=== PATIENT | female | born 1955 ===

== ENCOUNTER 2017-04-19 17:41 | Emergency (ER) | payer OTHER ==
[2017-04-19 17:41] VITALS: BMI 27.4
--- NOTE | 2017-04-19 18:49 | ED PDOC ---
HPI: Psych/Substance Abuse Time Seen by Provider: 04/19/17 17:57 Chief Complaint (Nursing): Psychiatric Evaluation Chief Complaint (Provider): Crisis eval History Per: Patient Additional Complaint(s): Pt brought in by [facility] – [place], pt had an argument with son, felt anxious and stated she wanted to . Pt expressed suicidal ideations with a plan to overdose. Pt states she has a long history of depression. Denies homicidal ideations. Past Medical History Reviewed: Nursing Documentation, Vital Signs Vital Signs: Last Vital Signs Temp 99.6 F 04/19/17 17:55 Pulse 70 04/19/17 17:55 Resp 18 04/19/17 17:55 BP 151/79 H 04/19/17 17:55 Pulse Ox 99 04/19/17 17:55 - Medical History PMH: Arthritis, Depression, HTN Denies: Chronic Kidney Disease - Family History Family History: States: No Known Family Hx - Living Arrangements Living Arrangements: With Family - Social History Current smoker - smoking cessation education provided: No Alcohol: None Drugs: Denies - Home Medications Home Medications: Ambulatory Orders Medication Instructions Recorded Clonazepam 1 mg PO HS 03/19/15 Escitalopram [Lexapro] 10 mg PO DAILY 03/19/15 Losartan/Hydrochlorothiazide 1 tab PO DAILY 03/19/15 [Losartan Potassium-Hydrochlorothiazide 12.5 M] - Allergies Allergies/Adverse Reactions: Allergies Allergy/AdvReac Type Severity Reaction Status Date / Time No Known Allergies Allergy Verified 03/19/15 07:47 Review of Systems ROS Statement: Except As Marked, All Systems Reviewed And Found Negative Psych: Positive for: Depression Physical Exam - Reviewed Nursing Documentation Reviewed: Yes Vital Signs Reviewed: Yes - Physical Exam Appears: Positive for: Well, Non-toxic, No Acute Distress Head Exam: Positive for: ATRAUMATIC, NORMAL INSPECTION, NORMOCEPHALIC Skin: Positive for: Normal Color, Warm, DRY Eye Exam: Positive for: EOMI, Normal appearance, PERRL ENT: Positive for: Normal ENT Inspection Neck: Positive for: Normal, Painless ROM Cardiovascular/Chest: Positive for: Regular Rate, Rhythm Respiratory: Positive for: CNT, Normal Breath Sounds Gastrointestinal/Abdominal: Positive for: Normal Exam, Bowel Sounds, Soft Back: Positive for: Normal Inspection Extremity: Positive for: Normal ROM Neurologic/Psych: Positive for: Alert, Oriented - Laboratory Results Result Diagrams: 04/19/17 19:00 - ECG O2 Sat by Pulse Oximetry: 99 Medical Decision Making Medical Decision Making: Crisis eval ordered Case endorsed to Mary Franco at 20:00 pending crisis eval and med screening exam Disposition - Clinical Impression Clinical Impression: Depression - Patient ED Disposition Is Patient to be Admitted: Transfer of Care ([facility]) - Disposition Disposition: Transfer of Care ([facility]) Disposition Time: 19:24 Condition: STABLE Forms: [facility] ([place]) - POA Present On Arrival: None
[2017-04-19 19:14] LABS: BASO % 0.9 % (0.0-2.0); HEMATOCRIT 40.9 % (34.0-47.0); LYMPH % 18.7 % (20.0-40.0); MEAN CELL VOLUME 87.9 fl (81.0-99.0); MEAN CORPUSCULAR HEMOGLOBIN 29.1 pg (27.0-31.0); MEAN CORPUSCULAR HGB CONC 33.1 g/dL (33.0-37.0); MONO # 0.5 K/uL (0.0-0.8); MONO % 8.9 % (0.0-10.0); NEUT # 3.6 K/uL (1.8-7.0); NEUT % 70.5 % (50.0-75.0); NRBC % 0.2 % (0.0-0.0); RED CELL DISTRIBUTION WIDTH 13.8 % (11.5-14.5); WHITE BLOOD COUNT 5.2 K/uL (4.8-10.8)
[2017-04-19 19:22] LABS: ALB/GLOB RATIO 1.5 (1.0-2.1); ALCOHOL SERUM < 10 mg/dl (0-10); ALKALINE PHOSPHATASE 89 U/L (38-126); ALT/SGPT 43 U/L (9-52); AST/SGOT 28 U/L (14-36); BILIRUBIN,TOTAL 0.8 mg/dl (0.2-1.3); BLOOD UREA NITROGEN 13 mg/dl (7-17); CALCIUM 9.3 mg/dL (8.4-10.2); CARBON DIOXIDE 29 mmol/L (22-30); CHLORIDE 102 mmol/L (98-107); GFR AFRICAN-AMERICAN > 60; GLUCOSE,RANDOM 91 mg/dL (65-105); SODIUM 140 mmol/l (132-148); TOTAL PROTEIN 6.8 G/DL (6.3-8.2)
[2017-04-19 19:23] LABS: RBC URINE < 1 /hpf (0-3); URINE BILIRUBIN NEGATIVE (NEGATIVE); URINE BLOOD NEGATIVE (NEGATIVE); URINE COLOR COLORLESS (YELLOW); URINE GLUCOSE (UA) NEG (Normal); URINE KETONE NEGATIVE (NEGATIVE); URINE LEUKOCYTE ESTERASE NEG Leu/uL (Negative); URINE PROTEIN NEGATIVE (NEGATIVE); URINE UROBILINOGEN 0.2-1.0 mg/dL (0.2-1.0); WBC URINE < 1 /hpf (0-5)
[2017-04-19 19:31] LABS: POTASSIUM 3.5 MMOL/L (3.6-5.0)
[2017-04-19 20:33] VITALS: BP 143/87; PULSE 63; RESP 16; TEMP 98.2; O2SAT 98
--- NOTE | 2017-04-19 20:41 | ED PDOC ---
- Laboratory Results Result Diagrams: 04/19/17 19:00 04/19/17 19:00 - ECG O2 Sat by Pulse Oximetry: 98 - Radiology X-Ray: Viewed By Me X-Ray Interpretation: No Acute Disease - Progress ED Course And Treament: Case endorsed to typewriter mechanic from Emeli THOMAS pending crisis eval Patient evaluated by chore worker; does not meet criteria for admission at this time as per Dr. Dowling. Follow up outpatient therapy. Return to ED for worsening/concerning symptoms. Disposition - Clinical Impression Clinical Impression: Depression - POA Present On Arrival: None - Disposition Disposition: Routine/Home Disposition Time: 20:40 Condition: STABLE Instructions: Depression (ED) Print Language: TURKMEN
--- NOTE | 2017-04-20 09:13 | RAD ---
PROCEDURE: CHEST RADIOGRAPH, 1 VIEW HISTORY: med screening COMPARISON: None available. FINDINGS: LUNGS: Clear. PLEURA: No pneumothorax or pleural fluid seen. CARDIOVASCULAR: Normal. OSSEOUS STRUCTURES: No significant abnormalities. VISUALIZED UPPER ABDOMEN: Normal. OTHER FINDINGS: None. IMPRESSION: No active disease.
--- NOTE | 2017-04-20 10:39 | CARD ---
APPROVED REPORT EKG Measurement Heart [id number] <Conclusion> Normal sinus rhythm Normal ECG
== END 2017-04-19 21:00 | disposition home or self-care (01) ==
LOC: H.ER 17:41
DX: F32.9 Major depressive disorder, single episode, unspecified (principal); R45.851 Suicidal ideations; I10 Essential (primary) hypertension